=== PATIENT | female | born 1940 | race Caucasian/White ===

== ENCOUNTER 2016-08-30 05:19 | Inpatient (IN) | payer OTHER ==
[2016-08-20 10:38] VITALS: BMI 33.0
--- NOTE | 2016-08-20 11:08 | PAT Medication Instructions ---
Service Date Aug 20, 2016. Current Home Medication List Acetaminophen Tab (Tylenol), 650 MG PO Q8H Alprazolam (Xanax), 0.25 MG PO TID PRN for Anxiety Cholecalciferol (Vitamin D3), 1 TAB PO Q2D Cyanocobalamin (Vitamin B12 500MCG), 5,000 MCG PO QAM Cyclobenzaprine Hcl (Flexeril), 10 MG PO PRN Diphenhydramine Hcl (Benadryl Allergy), 50 MG PO HS PRN for RN Kdxbmeprocc-Qmwiahiywzy-Fak C- (Glucosamine Chondroitin), 1 CAP PO QAM Oxycodone Ir (Roxicodone Ir), 5-10 MG PO Q8H PRN for Pain Potassium (Potassium), 1 TAB PO QPM Pyridoxine (Vitamin B6), 100 MG PO DAILY [Folic Acid], 800 MG PO DAILY Medication Instructions For Your Scheduled Surgery - Hold the following medications 10 days prior to surgery: Nsdvnckgxbk-Vikrxmzpydi-Zly C- (Glucosamine Chondroitin), 1 CAP PO QAM - Hold the following medications the morning of surgery: Pyridoxine (Vitamin B6), 100 MG PO DAILY Folic Acid 800 MG PO DAILY Cyclobenzaprine Hcl (Flexeril), 10 MG PO PRN Cyanocobalamin (Vitamin B12 500MCG), 5,000 MCG PO QAM Cholecalciferol (Vitamin D3), 1 TAB PO Q2D - Take the following medications the morning of surgery with a sip of water: Oxycodone Ir (Roxicodone Ir), 5-10 MG PO Q8H PRN for Pain (can take up to four hours prior to surgery if needed) Alprazolam (Xanax), 0.25 MG PO TID PRN for Anxiety (if needed) Acetaminophen Tab (Tylenol), 650 MG PO Q8H (if needed) - Take the following medications as scheduled the night before surgery: Potassium (Potassium), 1 TAB PO QPM Oxycodone Ir (Roxicodone Ir), 5-10 MG PO Q8H PRN for Pain Diphenhydramine Hcl (Benadryl Allergy), 50 MG PO HS PRN for RN Cyclobenzaprine Hcl (Flexeril), 10 MG PO PRN Alprazolam (Xanax), 0.25 MG PO TID PRN for Anxiety Acetaminophen Tab (Tylenol), 650 MG PO Q8H If you have any questions please call us at [phone] or [phone] ( [place]) or [phone]
[2016-08-20 11:29] LABS: BASO % 0.5 %; BASO ABS # 0.03 K/uL (0-0.2); COMPLETE YES; EOS % 2.3 %; HEMATOCRIT 40.3 % (37-47); IG% 0.2 %; LYMPH ABS # 1.41 K/uL (1.2-3.4); MEAN CELL VOLUME 85.7 fL (80-100); MEAN CORPUSCULAR HEMOGLOBIN 28.5 pg (25-34); MEAN CORPUSCULAR HGB CONC 33.3 g/dl (32-36); MONO % 6.1 %; NEUT % 68.9 %; PLATELET COUNT 368 K/uL (130-400)
[2016-08-20 11:31] LABS: URINE APPEARANCE CLEAR (CLEAR); URINE BILIRUBIN NEG (NEG); URINE COLOR YELLOW; URINE EPITHELIAL CELL AUTO >30 /lpf (0-5); URINE NITRITE NEG (NEG); UROBILINOGEN NEG (NEG); ZZUR CULT IF INDIC CLEAN CATCH NO
[2016-08-20 11:33] LABS: MANUAL MICROSCOPIC REQUIRED? NO; REVIEW REQ? NO
[2016-08-20 11:40] LABS: PARTIAL THROMBOPLASTIN RATIO 1.1; PROTHROMBIN TIME (PATIENT) 10.4 SECONDS (9.0-12.0)
[2016-08-20 12:02] LABS: BUN/CREATININE RATIO 21.5 (10-20); CALCIUM 9.3 mg/dl (8.5-10.1); CREATININE 0.84 mg/dl (0.60-1.20); POTASSIUM 4.2 mmol/L (3.5-5.1)
--- NOTE | 2016-08-29 14:42 | HISTORY & PHYSICAL EXAMINATION ---
DATE OF ADMISSION: 08/30/2016 CHIEF COMPLAINT: Left hip pain. HISTORY OF PRESENT ILLNESS: Bronwyn is a 76-year-old female with a 9-month history of pain in her left hip. She rates her pain at 12/10. She has pain with her daily activities. She has limited standing and walking tolerance. The pain is worse with weightbearing. The patient uses her walker on a regular basis. She recently had her right hip replaced in May of last year and is now scheduled to proceed with the left side. PAST MEDICAL HISTORY: Benign. She denies heart disease, diabetes or DVT. PAST SURGICAL HISTORY: Hysterectomy, left TKA, and right TRAE. SOCIAL HISTORY: The patient denies alcohol or tobacco use. She lives in a single [place] home. She is and retired. FAMILY HISTORY: Negative for DVT. MEDICATIONS: Vitamin B6 at 1000 mg, vitamin B12 at 5000 mcg, vitamin D3 at 5000 mg, folic acid 800 mg, potassium 99 mg, alprazolam 0.25 mg, oxycodone 5 mg q. 8 hours, Tylenol p.r.n., Benadryl 25 mg, and cyclobenzaprine 10 mg p.r.n. ALLERGIES: PENICILLIN, SULFA AND ASPIRIN IN HIGH DOSES. REVIEW OF SYSTEMS: See HPI. Ten other systems reviewed, all negative. PHYSICAL EXAMINATION: VITAL SIGNS: Height 5 feet 6 inches, weight 211 pounds, and BMI is 35. GENERAL: This is a well-developed and well-nourished female, who is alert and oriented x3. Mood and affect are appropriate. HEENT: Normocephalic and atraumatic. Mucous membranes are moist and intact. NECK: Supple without lymphadenopathy. HEART: Regular rate and rhythm without murmurs, rubs or gallops. LUNGS: Clear to auscultation without wheezes or rhonchi. ABDOMEN: Soft and nontender. Bowel sounds are equal and active. EXTREMITIES: No ecchymosis, redness or warmth. Thigh and calf are soft and nontender. Log roll of the hip reproduces the pain in the groin. She is neurovascularly intact with +5/5 strength. Range of motion is decreased and she walks with an antalgic gait. X-RAY EXAMINATION: AP and lateral views show joint space narrowing and osteophyte formation. IMPRESSION: Degenerative joint disease, left hip. PLAN: The patient will be admitted for a left total hip arthroplasty, direct anterior. We will plan on aspirin for DVT prophylaxis. DANNY
[~2016-08-30] VITALS: Ht 167.6 cm; Wt 96.4 kg
[2016-08-30] VITALS (10 sets, daily range): BP systolic 98–139; BP diastolic 60–79; PULSE 76–92; TEMP 36.2–36.8; O2SAT 93–100; Ht 167.6 cm; Wt 96.4 kg
[~2016-08-30 05:19] MED LIST: ACET325T96 PO; ALPR-411 PO; CHOL1000 PO; CYAN500T13 PO; CYCL10TA6 PO; DIPH1TAB PO; FOLIC ACID PO; GLUC1CAP35 PO; OXYC1TAB3 PO; POTA99TA PO; PYRI100T4 PO
[2016-08-30] MEDS ORDERED: POLYMYXIN B SULFATE 100,000 UNITS in NSS 100ML IR SCH (06:00)
[2016-08-30] MEDS ORDERED: LACTATED RINGER'S 1000ML 1,000 ML IV SCH (06:00)
[2016-08-30] MEDS ORDERED: METOCLOPRAMIDE HCL 10 MG TAB PO SCH (06:00)
[2016-08-30] MEDS ORDERED: VANCOMYCIN INJ 400 MG in NSS 100ML IR SCH (06:00)
[2016-08-30] MEDS ORDERED: LACTATED RINGER'S 1000ML IV SCH (06:00)
[2016-08-30] MEDS ORDERED: ROPIVACAINE 5MG/ML 30 ML 150 MG, BUPIVACAINE/EPINEPHR 0.5% MPF 30 ML, KETOROLAC TROMETH... INFIL SCH ×7 (06:00)
[2016-08-30] MEDS ORDERED: GABAPENTIN 300 MG CAP PO SCH (06:00)
[2016-08-30] MEDS ORDERED: DEXAMETHASONE 4 MG TAB PO SCH (06:00)
[2016-08-30] MEDS ORDERED: ACETAMINOPHEN 500 MG TAB PO SCH (06:00)
[2016-08-30] MEDS ORDERED: FAMOTIDINE 20 MG TAB PO SCH (06:00)
[2016-08-30] MEDS ORDERED: OXYCODONE HCL 10 MG TABCR (OXYCONTIN) PO SCH (06:00)
[2016-08-30] MEDS ORDERED: CLINDAMYCIN 600 MG/54 ML D5W IV ONE (06:11)
[2016-08-30] MEDS ORDERED: BUPIVACAINE 0.5 % 5 MG/1 ML PF 10ML VIAL ONE (06:25)
[2016-08-30] MEDS ORDERED: FENTANYL CITRATE INJ 50 MCG/1 ML 2 ML VIAL ONE (06:32)
[2016-08-30] MEDS ORDERED: LIDOCAINE HCL 2% 2 ML VIAL (20MG/ML) ONE (06:32)
[2016-08-30] MEDS ORDERED: PROPOFOL IV EMULSION 10 MG/ML 20 ML VIAL IV ONE ×2 (06:32→07:48)
[2016-08-30] MEDS ORDERED: MIDAZOLAM HCL 1 MG/ML 2ML VIAL ONE (06:32)
[2016-08-30] MEDS: TRANEXAMIC ACID INJ 1,000 MG in SODIUM CHLORIDE 0.9% 100ML 100 ML IV SCH ×2 (06:49→11:45)
--- NOTE | 2016-08-30 07:14 | History & Physical Bridge Note ---
H&P Re-Evaluation Bridge Note: I have examined the patient, reviewed the History & Physical and in the interval since the performance of the History & Physical I have noted the following changes of clinical significance: No changes noted
[2016-08-30] MEDS ORDERED: ORTHO JOINT ANESTHETIC ONE (07:24)
[2016-08-30] MEDS ORDERED: BACITRACIN 50000 UNIT VIAL ONE (07:24)
[2016-08-30] MEDS ORDERED: POVIDONE-IODINE OP SOLN 30 ML BTL ONE (07:24)
[2016-08-30] MEDS ORDERED: EpHEDrine SULFATE INJ 50 MG/ML AMP ONE (07:45)
[2016-08-30] MEDS ORDERED: PHENYLEPHRINE HCL INJ 10 MG/ML VIAL ONE (07:45)
[2016-08-30] MEDS ORDERED: EpHEDrine SULFATE INJ 50 MG/ML AMP IV PRN (08:00)
[2016-08-30] MEDS ORDERED: FLUMAZENIL 0.1 MG/1 ML 10 ML VIAL IV PRN (08:00)
[2016-08-30] MEDS ORDERED: ONDANSETRON INJ 2 MG/ML 2 ML VIAL IV PRN ×2 (08:00→09:00)
[2016-08-30] MEDS ORDERED: PHENYLEPHRINE 100MCG/ML 5ML SYR IV PRN (08:00)
[2016-08-30] MEDS ORDERED: LABETALOL HCL IV 5 MG/ML 20ML IV PRN (08:00)
[2016-08-30] MEDS ORDERED: NALOXONE HCL 0.4 MG/1 ML VIAL/CARP IV PRN (08:00)
[2016-08-30] MEDS ORDERED: ATROPINE SULFATE 0.1 MG/ML 5ML SYR IV PRN (08:00)
[2016-08-30] MEDS ORDERED: FENTANYL CITRATE INJ 50 MCG/1 ML 2 ML VIAL IV PRN (08:00)
[2016-08-30] MEDS ORDERED: MEPERIDINE HCL 25 MG/ML CARP IV PRN (08:00)
[2016-08-30] MEDS ORDERED: HYDROmorphone INJ 1 MG/ML SYR IV PRN (08:00)
--- NOTE | 2016-08-30 08:56 | DIAGNOSTIC IMAGING REPORT ---
INTRAOPERATIVE LEFT HIP SINGLE VIEW CLINICAL HISTORY: Left hip arthroplasty COMPARISON STUDY: No previous studies for comparison. FINDINGS: 17 seconds of fluoroscopic time was utilized. A single intraoperative fluoroscopic spot film demonstrates postsurgical changes of a total left hip arthroplasty. No dislocation is evident IMPRESSION: Intraoperative radiograph demonstrating a total left hip arthroplasty Electronically signed by: Juan Castaneda M.D. 08/30/2016 8:54 AM Dictated Date/Time: 08/30/2016 8:54 AM
[2016-08-30] MEDS ORDERED: MAGNESIUM HYDROXIDE SUSP 30 ML UDC PO PRN (09:00)
[2016-08-30] MEDS ORDERED: ALPRAZOLAM 0.5 MG TAB PO PRN (09:00)
[2016-08-30] MEDS ORDERED: DiphenhydrAMINE HCL 50 MG/ML VIAL IV PRN (09:00)
[2016-08-30] MEDS ORDERED: SOD PHOSPHATE/SOD BIPHOSPHATE ENEMA 132 ML BTL PR PRN (09:00)
[2016-08-30] MEDS ORDERED: MoRPHine SULFATE 2 MG/ML CARP IV PRN (09:00)
[2016-08-30] MEDS ORDERED: [UNRECOGNIZED DRUG - REMARK] PO PRN (09:00)
[2016-08-30] MEDS ORDERED: TRAMADOL HCL 50 MG TAB PO PRN (09:00)
[2016-08-30] MEDS ORDERED: CYCLOBENZAPRINE HCL 10 MG TAB PO PRN (09:00)
[2016-08-30] MEDS ORDERED: METOCLOPRAMIDE HCL INJ 5 MG/ML 2 ML VIAL IV PRN (09:00)
[2016-08-30] MEDS ORDERED: BISACODYL 10 MG SUPP PR PRN (09:00)
[2016-08-30] MEDS ORDERED: ZOLPIDEM TARTRATE 5 MG TAB PO PRN (09:00)
[2016-08-30] MEDS ORDERED: ALUMINUM/MAGNESIUM/SIMETH (MAALOX MAX) 30 ML UDC PO PRN (09:00)
--- NOTE | 2016-08-30 09:00 | [facility] Post Operative Brief Note ---
Immediate Operative Summary Operative Date Aug 30, 2016. Pre-Operative Diagnosis Left hip degenerative joint disease Post-Operative Diagnosis Left hip degenerative joint disease Procedure(s) Performed Left total hip, direct anterior approach Surgeon Dr. Richy Prado Flower Pot Press Operator Surgeon(s) JITENDRA Estimated Blood Loss 200 Findings DJD Specimens A. Left femoral head Complication(s) None Disposition Recovery Room / PACU
--- NOTE | 2016-08-30 10:07 | Anesthesiology Progress Note ---
Anesthesia Post Op Note Date & Time Aug 30, 2016 at 10:07 Vital Signs Pain Intensity: 0 Vital Signs Past 12 Hours Date Time Temp Pulse Resp B/P Pulse Ox O2 Delivery O2 Flow Rate FiO2 08/30/16 09:35 80 10 103/62 100 Mask 10 08/30/16 09:25 36.6 81 17 137/81 100 Mask 10 08/30/16 05:57 36.8 86 20 139/77 93 Room Air Notes Mental Status: alert / awake / arousable, participated in evaluation Pt Amnestic to Procedure: Yes Nausea / Vomiting: adequately controlled Pain: adequately controlled Airway Patency, RR, SpO2: stable & adequate BP & HR: stable & adequate Hydration State: stable & adequate Neuraxial Anesthesia: was administered, sensory block is resolving Anesthetic Complications: no major complications apparent
--- NOTE | 2016-08-30 10:11 | DIAGNOSTIC IMAGING REPORT ---
SINGLE VIEW PELVIS; SINGLE VIEW LEFT HIP CLINICAL HISTORY: Postoperative examination. FINDINGS: An AP portable view of the hips and lower pelvis with a crosstable lateral portable view of the left hip are compared to study dated 06/11/2016. The skeletal structures are osteopenic. A right hip arthroplasty is unchanged in alignment. There is a new bipolar left hip arthroplasty in near anatomic alignment. A single cortical lag screw transfixes the acetabular cup. No acute fracture is seen. There are expected postoperative changes overlying the left including subcutaneous gas, soft tissue swelling, and a surgical drain. IMPRESSION: Expected postoperative findings status post left hip arthroplasty. No fracture is seen. Electronically signed by: Manolo Brock M.D. 08/30/2016 10:10 AM Dictated Date/Time: 08/30/2016 10:08 AM
[2016-08-30] MEDS: D5W AND 1/2NSS + 20MEQ KCL 1,000 ML IV SCH ×2 (11:43→20:50)
[2016-08-30] MEDS ORDERED: CHOLECALCIFEROL 1000 INTER.UNIT TAB PO SCH (13:00)
[2016-08-30] MEDS ORDERED: TRANEXAMIC ACID INJ 1,000 MG in SODIUM CHLORIDE 0.9% 100ML 100 ML IV ONE (13:00)
[2016-08-30] MEDS: ASPIRIN 81 MG ECTAB PO SCH ×2 (13:03→20:49)
[2016-08-30] MEDS: PANTOprazole SOD 40 MG TAB PO SCH (13:04)
[2016-08-30] MEDS: PYRIDOXINE HCL 50 MG TAB PO SCH (13:04)
[2016-08-30] MEDS: MULTIVITAMIN TAB PO SCH (13:04)
[2016-08-30] MEDS: OXYCODONE HCL IR 5 MG TAB (IMMEDIATE RELEASE) PO PRN ×2 (13:09→22:34)
--- NOTE | 2016-08-30 14:15 | OPERATIVE REPORT ---
DATE OF OPERATION: 08/30/2016 PREOPERATIVE DIAGNOSIS: Degenerative arthritis, left hip. POSTOPERATIVE DIAGNOSIS: Same. PROCEDURE: Left total hip replacement. SURGEON: Richy Prado MD SOCIAL SERVICES AIDE: GARRETT Smith ANESTHESIA: Spinal. BLOOD LOSS: 200 mL. REPLACEMENT FLUIDS: 1900 mL crystalloid. DRAINS: Hemovac x1. CULTURES: None. COMPLICATIONS: None. COMPONENTS USED: [employer] hip system: Acetabulum size 50, femur size 6 standard offset, femoral head 0, neck length 32 mm. NOTE: GARRETT Smith was present and assisted throughout due to the complicated nature of this case. She helped with preparation and set up, first assisted throughout, and personally closed the fascial, subcutaneous and skin layers and applied the postoperative dressing. DESCRIPTION OF PROCEDURE: Following satisfactory spinal, the patient was supine. The left leg was placed in the traction device and the right leg in the well leg romero. The left leg was then prepared with ChloraPrep and draped sterilely. Following a surgical time-out, an anterior approach was performed in the interval between the sartorius and tensor muscles. The patient did have fairly large subcutaneous layer. Hemostasis was controlled. The circumflex femoral vessels were identified and ligated. An anterior capsulotomy was performed exposing an extremely inflamed and arthritic femoral head. The femoral neck and head were trimmed and removed. The acetabular self-retraining retractor was placed. Acetabular reaming and preparation was completed and under fluoroscopic guidance, a 50 shell was impacted into an anatomic position and secured with a dome screw. After local anesthetic and irrigation, the polyethylene liner was placed. The femur was placed into position of external rotation, extension and adduction. Femoral canal was prepared up to a size 6. A trial reduction with a 0 neck length head showed very good soft tissue tension, good fit and fill of the proximal canal and synagogue of leg lengths using fluoroscopic landmarks. The hip was dislocated. The trial component was removed. The final implant was placed and fluoroscopy confirmed the position. A Betadine soak was performed. After 5 minutes, the Betadine was irrigated. The capsule was closed with #1 Vicryl interrupted. A drain was then placed. The fascia was then closed with a running suture of #1 Vicryl, the subcutaneous tissues with #1 and 2-0 Vicryl, and the skin with a running subcuticular stitch of 3-0 V-Loc. Dermabond and a dry dressing were applied. The patient was returned to her bed in stable condition. I attest to the content of the Intraoperative Record and any orders documented therein. Any exceptio ns are noted below.
[2016-08-30] MEDS: CYANOCOBALAMIN 500 MCG TAB (VIT B-12) PO SCH (14:23)
[2016-08-30] MEDS: ACETAMINOPHEN 500 MG TAB PO SCH ×2 (14:24→20:49)
[2016-08-30] MEDS: CLINDAMYCIN IV 600 MG in DEXTROSE 5% ADD-VANTAGE 50ML 50 ML IV SCH ×2 (15:55→23:47)
[2016-08-30] MEDS: KETOROLAC TROMETHAMINE 15 MG/ML VIAL IV. SCH ×2 (15:56→20:50)
[2016-08-30] MEDS ORDERED: NON-FORMULARY MEDICATION (Potassium 1 TAB) PO SCH (21:00)
[2016-08-30] MEDS ORDERED: SENNA 8.6 MG TAB PO SCH (21:00)
[2016-08-31] MEDS: KETOROLAC TROMETHAMINE 15 MG/ML VIAL IV. SCH (04:05)
[2016-08-31 04:18] VITALS: BP 131/80; PULSE 79; TEMP 36.4; O2SAT 99
[2016-08-31] MEDS: ACETAMINOPHEN 500 MG TAB PO SCH (05:25)
[2016-08-31 06:03] LABS: BASO % 0.1 %; BASO ABS # 0.01 K/uL (0-0.2); COMPLETE YES; HEMATOCRIT 29.8 % (37-47); IG% 0.2 %; LYMPH % 5.8 %; LYMPH ABS # 0.94 K/uL (1.2-3.4); MEAN CELL VOLUME 84.4 fL (80-100); MEAN CORPUSCULAR HEMOGLOBIN 28.6 pg (25-34); MEAN CORPUSCULAR HGB CONC 33.9 g/dl (32-36); MEAN PLATELET VOLUME 9.1 fL (7.4-10.4); MONO % 6.4 %; NEUT % 87.5 %; PLATELET COUNT 284 K/uL (130-400); RED BLOOD COUNT 3.53 M/uL (4.2-5.4)
[2016-08-31 06:31] LABS: BUN/CREATININE RATIO 13.6 (10-20); CALCIUM 8.4 mg/dl (8.5-10.1); CREATININE 0.78 mg/dl (0.60-1.20); POTASSIUM 4.5 mmol/L (3.5-5.1)
[2016-08-31] MEDS: D5W AND 1/2NSS + 20MEQ KCL 1,000 ML IV SCH (07:09)
[2016-08-31 08:04] VITALS: BP 138/80; PULSE 84; TEMP 36.4; O2SAT 100
--- NOTE | 2016-08-31 08:38 | Orthopedic Progress Note ---
Orthopedic Progress Note Date of Service Aug 31, 2016. Subjective Post OP Day: 1 Reports: feeling well, pain controlled w PO medications, Denies: SOB, calf pain , chest pain, light headedness, nausea / vomiting Additional Notes: Patient was doing very well until sometime after 6 pm past evening, she reached for the handle on the trapeze and felt a painful "pull" anterior thigh, since then signif increased pain ant thigh. Objective calves soft nontender, N/V intact, capillary refill less than 2 sec., dressing C /D/I, A&O x3, toes mobile Date Time Temp Pulse Resp B/P Pulse Ox O2 Delivery O2 Flow Rate FiO2 08/31/16 08:04 36.4 84 24 138/80 100 Room Air 08/31/16 07:40 Room Air 08/31/16 04:18 36.4 79 16 131/80 99 Room Air 08/30/16 23:45 Room Air 08/30/16 23:37 36.6 89 19 128/69 96 Room Air 08/30/16 19:25 36.6 92 18 111/72 96 Room Air 08/30/16 15:45 Room Air 08/30/16 15:22 36.2 86 16 119/76 95 Room Air 08/30/16 13:21 76 16 102/79 98 08/30/16 12:32 36.8 87 16 98/60 100 Nasal Cannula 2.0 08/30/16 11:49 36.6 83 16 118/64 99 Nasal Cannula 2.0 08/30/16 11:12 98 Nasal Cannula 2.0 08/30/16 11:11 36.8 81 16 116/78 98 Nasal Cannula 2.0 08/30/16 10:25 Nasal Cannula 08/30/16 10:25 36.3 84 12 139/75 97 Nasal Cannula 2.0 08/30/16 10:25 Nasal Cannula 2.0 08/30/16 10:15 85 18 97/74 97 Nasal Cannula 2 08/30/16 10:05 36.0 81 14 98/51 97 Nasal Cannula 2 08/30/16 09:55 84 14 104/62 97 Nasal Cannula 2 08/30/16 09:45 94 14 89/59 100 Mask 10 08/30/16 09:35 80 10 103/62 100 Mask 10 2/10/17 09:25 36.6 81 17 137/81 100 Mask 10 Laboratory Results 24 Hours: Test 08/31/16 05:49 White Blood Count 16.10 K/uL Red Blood Count 3.53 M/uL Hemoglobin 10.1 g/dL Hematocrit 29.8 % Mean Corpuscular Volume 84.4 fL Mean Corpuscular Hemoglobin 28.6 pg Mean Corpuscular Hemoglobin Concent 33.9 g/dl Platelet Count 284 K/uL Mean Platelet Volume 9.1 fL Neutrophils (%) (Auto) 87.5 % Lymphocytes (%) (Auto) 5.8 % Monocytes (%) (Auto) 6.4 % Eosinophils (%) (Auto) 0.0 % Basophils (%) (Auto) 0.1 % Neutrophils # (Auto) 14.08 K/uL Lymphocytes # (Auto) 0.94 K/uL Monocytes # (Auto) 1.03 K/uL Eosinophils # (Auto) 0.00 K/uL Basophils # (Auto) 0.01 K/uL Assessment & Plan Assessment: POD #1, LT TRAE Plan: PT/ OT DVT proph- ASA D/C plans- Home w today if xrays clear. Will check xrays prior to d/c. Inhouse Planning Pain Management: Toradol, Ultram, Morphine, PO Tylenol, Oxy IR DVT Prophylaxis: TEDs, SCDs, ASA Discharge Planning Discharge Planning: home with home health Pain Management: PO Tylenol, Oxy IR DVT Prophylaxis: TEDs, ASA Therapy: Physical Therapy, Occupational Therapy
[2016-08-31] MEDS ORDERED: ASPEC81 PO (08:45)
[2016-08-31] MEDS ORDERED: ONDA8TAB6 PO (08:45)
[2016-08-31] MEDS ORDERED: RXC5 PO (08:45)
[2016-08-31] MEDS ORDERED: ACET-1138 PO (08:45)
--- NOTE | 2016-08-31 08:47 | Discharge Instructions ---
Discharge Instructions Admission Reason for Admission: Left Hip Degenerative Arthritis Discharge Discharge Diagnosis / Problem: Lt TRAE Discharge Goals Goal(s): Improve function Activity Recommendations Activity Limitations: as noted below . Instructions / Follow-Up Instructions / Follow-Up ACTIVITY RECOMMENDATIONS: SELF CARE INSTRUCTIONS AFTER TOTAL HIP REPLACEMENT Until the incision and soft tissues around your hip have healed, there is a possibility that the hip prosthesis could dislocate. A. Observe the following precautions to prevent dislocation: 1. Don't bend your hip greater than 90 degrees. 2. Avoid crossing your legs or ankles while standing or lying. 3. Sit with your feet placed 6 inches apart. 4. When sitting, keep your knees below your hips. Sit on a firm surface, avoid deep, soft chairs and couches. Use an elevated toilet seat in the bathroom. 5. Don't bend over at the waist. Use a long handled shoehorn and a sock aid to help you put on your shoes and socks. A director school of nursing can help you black pickler objects that are too high or too low to reach. 6. Keep car riding to a minimum for at least one month after surgery. B. Your balance may be shaky for a while. Use crutches or a walker until directed by your doctor. C. Use hand rails when walking on stairs. D. Wear low heeled shoes with non-slip soles. E. Be sure that your floors are free of things that could trip you - throw rugs , electrical cords, small objects. Avoid wet and waxed floors, especially with crutches and canes. F. Try to walk several times a day with rest periods between. G. Continue with all the exercises taught to you in the hospital. Again, make walking a part of your daily routine. SPECIAL CARE INSTRUCTIONS: VERY IMPORTANT TO READ AND REVIEW A. You may still be at risk for phlebitis and blood clots. 1. Wear surgical stockings (ALEXI hose) for 2 weeks after surgery to improve circulation and reduce swelling. 2. Take Aspirin 81mg twice daily for 4 weeks or as directed by your doctor. This is your blood thinner. 3. High risk patients may be prescribed a stronger blood thinner if necessary. 4. If you are on Coumadin normally, your family doctor/special education math teacher should monitor your blood work. Expect a phone call the day of or the day after bloodwork is drawn to adjust your dosage. B. You must take antibiotics before having dental work, bladder, bowel and other surgery. Your doctor will provide you with a permanent card to carry describing precautions. C. Call [facility] if you have a fever, redness or swelling around the incision, cloudy drainage from incision, or sudden increase in pain in your hip, not relieved by your regular pain medication. D. Please call the office at if you have any concerns or questions about your operation or recovery. * YOU MAY SHOWER, NO TUB BATHS UNTIL CLEARED BY YOUR DOCTOR. * WEAR ALEXI HOSE 20 HOURS PER DAY FOR 2 WEEKS. * YOU SHOULD USE A WALKER OR CRUTCHES FOR 2-4 WEEKS. THIS WILL HELP PREVENT STRAIN ON YOUR HIP MUSCLE AND ALLOW IT TO HEAL PROPERLY. YOU MAY WEAN TO A CANE TOLERATED. * MOST PATIENTS WILL HAVE HOME NURSING FOR THERAPY. IF YOU DECIDE TO DO OUTPATIENT PHYSICAL THERAPY, PLEASE SCHEDULE THIS 3 TIMES PER WEEK. * YOU MAY HAVE A LARGE, BAND-HERBERT LIKE DRESSING (SILVERON). THIS WILL REMAIN ON YOUR INCISION FOR 7 DAYS, THEN CAN BE REMOVED. IF INCISION IS LEAKING THROUGH DRESSING, PLEASE CALL THE OFFICE . FOLLOW UP VISIT: If appointment is not already scheduled: Please call [facility] to make a follow-up appointment for 2 weeks after your surgery at . Current Hospital Diet Patient's current hospital diet: Regular Diet Discharge Diet Recommended Diet: Regular Diet Procedures Procedures Performed: Left total hip, direct anterior approach Pending Studies Studies pending at discharge: no Medical Emergencies . Who to Call and When: Medical Emergencies: If at any time you feel your situation is an emergency, please call [phone] immediately. . Non-Emergent Contact Non-Emergency issues call your: Primary Care Provider . "Provider Documentation" section prepared by Eddie Aguillon. VTE Core Measure Inpt VTE Proph given/why not?: Other Anticoagulation (asa), T.E.DBritt Montiel
--- NOTE | 2016-08-31 09:02 | DIAGNOSTIC IMAGING REPORT ---
LEFT HIP 2 VIEWS CLINICAL HISTORY: Left hip pain. FINDINGS: AP and frog-leg views of left hip are compared to study performed yesterday 08/30/16. The skeletal structures are osteopenic. A bipolar left hip arthroplasty is unchanged in alignment. No fracture is seen. Postoperative changes are again noted overlying the left hip including soft tissue swelling, scattered foci of gas, and a surgical drain. Sclerotic change is noted in the left sacroiliac joint. IMPRESSION: 1. No acute bony abnormality is seen in the left hip. An arthroplasty is in near-anatomic alignment. 2. Expected postoperative changes as above. Electronically signed by: Manolo Brock M.D. 08/31/2016 9:00 AM Dictated Date/Time: 08/31/2016 8:59 AM
[2016-08-31 09:08] VITALS: O2SAT 100
[2016-08-31 09:46] VITALS: BP 138/80; PULSE 84; TEMP 36.4; O2SAT 100
[2016-08-31] MEDS: PANTOprazole SOD 40 MG TAB PO SCH (09:54)
[2016-08-31] MEDS: ASPIRIN 81 MG ECTAB PO SCH (09:54)
[2016-08-31] MEDS: CYANOCOBALAMIN 500 MCG TAB (VIT B-12) PO SCH (09:54)
[2016-08-31] MEDS: PYRIDOXINE HCL 50 MG TAB PO SCH (09:54)
[2016-08-31] MEDS: MULTIVITAMIN TAB PO SCH (09:54)
[2016-08-31] MEDS: OXYCODONE HCL IR 5 MG TAB (IMMEDIATE RELEASE) PO PRN (09:57)
--- NOTE | 2016-09-09 14:25 | DISCHARGE SUMMARY ---
DISCHARGE DIAGNOSIS: Degenerative joint disease, left hip. SECONDARY DIAGNOSIS: None. CONSULTS: None. COMPLICATIONS: None. PROCEDURE: The patient underwent a left total hip arthroplasty, direct anterior approach with Dr. Prado on 08/30/2016. BRIEF HISTORY: Please see previously dictated history and physical. HOSPITAL SUMMARY: The patient was admitted on the above day for the above procedure. Procedure went without complication. Postop day 1, the patient was feeling well. She did feel a pull in her anterior thigh and then had significant pain anteriorly the evening of her surgery. Vital signs were stable. She was afebrile. Dressing was clean, dry and intact. She was neurovascularly intact. Calves were soft and nontender. Hemoglobin was 10.1. X-rays were normal. The patient began physical therapy per protocol. She was discharged to home in stable condition. For further review please see the chart. Lab, x-ray data and discharge instructions as per chart.
== END 2016-08-31 11:02 | disposition home health service (06) | DRG 470 ==
LOC: ENRESERVDT → ENRESERVTM → C.ACU 05:19 → C.3E 07:00
PROVIDERS: ADMIT Orthopaedic Surgery; ATTEND Orthopaedic Surgery
PROC: 0SRB04Z Replacement of Left Hip Joint with Ceramic on Polyethylene Synthetic Substitute, Open Approach (ICD-10-PCS; principal; 2016-08-30 07:30)
DX: M16.12 Unilateral primary osteoarthritis, left hip (principal); F41.9 Anxiety disorder, unspecified; M54.5 Low back pain; E66.9 Obesity, unspecified; M62.81 Muscle weakness (generalized); I89.0 Lymphedema, not elsewhere classified; M79.7 Fibromyalgia; R60.0 Localized edema; M54.10 Radiculopathy, site unspecified; Z96.652 Presence of left artificial knee joint; Z68.34 Body mass index [BMI] 34.0-34.9, adult; Z96.641 Presence of right artificial hip joint; Z79.899 Other long term (current) drug therapy; Z79.891 Long term (current) use of opiate analgesic